=== PATIENT | female | born 1980 | race Caucasian/White ===

== ENCOUNTER → 2022-08-27 | Outpatient (CLI) | payer OTHER, SELFPAY ==
--- NOTE | 2022-08-27 12:56 | BI_ITS ---
MAMMOGRAPHY - BILATERAL SCREENING REASON FOR EXAM: Female, 42 years old. Routine annual screening examination. PERTINENT HISTORY: Non-contributory. TECHNIQUE: Digital bilateral breast adrian (3D mammographic acquisition) in the CC and MLO projections. 2-D mediolateral oblique (MLO) and craniocaudad (CC) views of both breasts were obtained. CAD: Full Field Digital Mammography with Computer Added Detection was performed. COMPARISON: None. FINDINGS: Breast Composition: The breasts are heterogeneously dense, which may obscure small masses. There is a 5.8 x 4.2 cm oval, slightly lobular, partially obscured mass in the right upper outer breast approximately 3 cm posterior to the nipple. Further assessment with ultrasound is recommended. No other significant abnormalities are identified. BI/SCRN MAMM (CAD)W/ADRIAN BILAT IMPRESSION: Further imaging evaluation recommended, as described above. (E) Recall Side: Right Breast ASSESSMENT CATEGORY: BIRADS Category 0: Incomplete. Need additional imaging evaluation. A letter regarding these results will be sent to the patient by the facility within 30 days. Approximately 10% of breast cancers are not detected by mammography. A normal mammogram should not delay biopsy of a clinically suspicious abnormality. Electronically Signed: Kenny Waldron DO at 11:15 EDT ,
--- NOTE | 2022-08-27 13:35 | US_ITS ---
INDICATION: MENORRHAGIA EXAMINATION: US Pelvis Non OB Complete With Transvaginal Imaging TECHNIQUE: Transabdominal and transvaginal pelvic ultrasound was performed. Grayscale and color flow Doppler evaluation of the adnexa. Spectral waveform analysis of ovaries was not performed. COMPARISON: None. FINDINGS: UTERUS: Retroverted uterus measures 10.2 x 6.5 x 7 cm. Heterogeneous ovoid low-attenuation mass within posterior uterine fundal myometrium compatible with fibroid, measuring 6.3 x 3.8 x 4.8 cm. The endometrial complex measures 15 mm in AP diameter and is normal echotexture with no discrete lesion. RIGHT OVARY: Right ovary measures 4 x 2.9 x 3.6 cm. Non-enlarged, normal echogenicity. Normal color Doppler flow with no concerning lesion. LEFT OVARY: Left ovary measures 5.8 x 2.9 x 3 cm. Non-enlarged, normal echogenicity. Normal color Doppler flow with no concerning lesion. FREE FLUID: No significant free fluid detected. US/Pelvic w/ Transvaginal IMPRESSION: Large posterior uterine fibroid measuring up to 6.3 cm diameter Electronically Signed: Carlos Connell MD at 6:39 EDT ,
== END | disposition home or self-care (01) ==
PROVIDERS: PCP Nurse Practitioner Family; Referring Provider Nurse Practitioner Women's Health; Visit Provider Nurse Practitioner Women's Health
DX: Z12.31 Encounter for screening mammogram for malignant neoplasm of breast (principal); N92.0 Excessive and frequent menstruation with regular cycle
CPT/HCPCS: 76830; 76856; 77063; 77067

== ENCOUNTER → 2022-08-31 | Outpatient (CLI) | payer OTHER, SELFPAY ==
--- NOTE | 2022-08-31 10:43 | US_ITS ---
EXAM: Diagnostic unilateral right breast ultrasound REASON FOR EXAM: Female, 42 years old. Follow-up for abnormal mammogram findings. PERTINENT HISTORY: Non-contributory. TECHNIQUE: Real-time nair scale and color sonographic images were obtained of the right upper outer breast was performed. COMPARISON: Screening mammogram from 08/27/2022. FINDINGS: Ultrasound findings: There is a 4.6 x 5.2 x 1.9 cm hypoechoic/mixed echogenicity mass at the 10:00 position approximately 6.0 cm posterior to the nipple and corresponding with the mammography findings. This demonstrates indistinct slightly lobular borders, slight internal vascularity, but does not demonstrate posterior enhancement or posterior shadowing.. US/Breast Limited Unilateral IMPRESSION: Indeterminate 4.6 x 5.2 x 1.9 cm mass in the right breast warrants further assessment with biopsy. ASSESSMENT CATEGORY: BIRADS Category 4: Suspicious - Biopsy Should Be Considered. A letter regarding these results will be sent to the patient by the facility within 30 days. Recommendation: Biopsy is recommended. Approximately 10% of breast cancers are not detected by mammography. A normal mammogram should not delay biopsy of a clinically suspicious abnormality. Electronically Signed: Kenny Waldron DO at 14:02 EDT ,
== END | disposition home or self-care (01) ==
LOC: OPUS 10:40
PROVIDERS: PCP Nurse Practitioner Family; Referring Provider Nurse Practitioner Women's Health; Visit Provider Nurse Practitioner Women's Health
DX: N63.11 Unspecified lump in the right breast, upper outer quadrant (principal)
CPT/HCPCS: 76642

== ENCOUNTER → 2022-09-05 | Outpatient (CLI) | payer OTHER, SELFPAY ==
--- NOTE | 2022-09-05 | BRBX_PTH ---
PATIENT: LILLIANA ARMENDARIZ LOC: [facility] U#:[id number] AGE/SX: 42/F ROOM: RE09/05/[address]: Dr. Delroy Dobson MD : 1980 BED: DIS: 09/05/2022 SPEC #: [id number] RECD: 09/06/22 08:58 STATUS: FRAN PASTRANA #: [id number] KIERSTEN: 09/05/22 00:[address]: Delroy Dobson DEPT: SURGICAL PATHOLOGY RECD BY: Leon Suárez ENTERED: 09/06/22 08:59 SP TYPE: BREAST BX OTHR DR: Ellie Arellano, TAMANNA Tissues: Right breast, NOS Procedures: Surgery Specimen Level IV HEADER OPERATION: Ultrasound-guided needle core biopsy right breast PRE-OP DIAGNOSIS: Abnormal mammogram TISSUE SUBMITTED: Right breast biopsy MICROSCOPIC DIAGNOSIS Right breast, ultrasound-guided core biopsy: Mild non-proliferative fibrocystic change. Focal intraductal hyperplasia without atypia. No evidence of malignancy. AM:eduardo 09/07/2022 MICROSCOPIC DESCRIPTION Slides are reviewed. GROSS DESCRIPTION Received in fixative is one container labeled with the patient's name and designated right breast. The specimen consists of multiple elongated fragments of genao-yellow fibroadipose tissue that in aggregate measure 2.0 x 0.5 x 0.1 cm. The entire specimen is submitted in one cassette. / SJ:eduardo 09/06/2022 TC:5 CPT: 11645
== END | disposition home or self-care (01) ==
LOC: LAB 16:08
PROVIDERS: PCP Nurse Practitioner Family; Referring Provider Surgery; Visit Provider Surgery
DX: R92.8 Other abnormal and inconclusive findings on diagnostic imaging of breast (principal)
CPT/HCPCS: 88305

== ENCOUNTER → 2022-10-31 | Outpatient (CLI) | payer OTHER, SELFPAY ==
--- NOTE | 2022-10-31 17:00 | EMB_PTH ---
PATIENT: LILLIANA ARMENDARIZ LOC: [facility] U#:[id number] AGE/SX: 42/F ROOM: RE10/31/[address]: Dr. Siobhan Quispe DO : 1980 BED: DIS: 10/31/2022 SPEC #: [id number] RECD: 10/31/22 17:52 STATUS: FRAN VICTORIANO #: [id number] KIERSTEN: 10/31/22 17:[address]: Siobhan Quispe DEPT: SURGICAL PATHOLOGY RECD BY: Joanne Quinteros ENTERED: 11/01/22 10:26 SP TYPE: ENDOM BX/C HUSEYIN DR: TAMANNA Carter Tissues: Endometrium, NOS Procedures: Surgery Specimen Level IV HEADER OPERATION: EMB PRE-OP DIAGNOSIS: Menorrhagia TISSUE SUBMITTED: Endometrial lining MICROSCOPIC DIAGNOSIS Endometrial biopsy: Proliferative endometrium. Fragments of benign endocervical mucosa. SJ: 11/02/2022 MICROSCOPIC DESCRIPTION Slides are reviewed. GROSS DESCRIPTION Received in formalin is one container labeled with the patient name and designated endometrial lining. The specimen consists of multiple fragments of hemorrhagic soft tissue measuring in aggregate 1.5 x 1.5 x .1 cm. The specimen is totally submitted in one cassettes. /EDUARDO:radha 11/01/22 TC:4 CPT: 54722
== END | disposition home or self-care (01) ==
PROVIDERS: PCP Nurse Practitioner Family; Visit Provider Obstetrics & Gynecology
DX: Z12.4 Encounter for screening for malignant neoplasm of cervix (principal); N92.0 Excessive and frequent menstruation with regular cycle
CPT/HCPCS: 87624; 88175; 88305; G0145

== ENCOUNTER 2023-01-22 09:01 | Day surgery (SDC) | payer OTHER, SELFPAY ==
--- NOTE | 2023-01-21 08:02 | EKG12_ITS ---
Test Reason : PREOP Blood Pressure : / mmHG Vent. Rate : 060 BPM Atrial Rate : 060 BPM P-R Int : 158 ms QRS Dur : 080 ms QT Int : 452 ms P-R-T Axes : 043 004 013 degrees QTc Int : 452 ms Normal sinus rhythm Normal ECG Confirmed by STEVAN HANSEN ([id number]), film editor TY FLOR ([id number]) on 01/21/2023 11:23:29 AM Referred By: Siobhan Quispe Confirmed By:STEVAN HANSEN
[2023-01-21 09:06] LABS: Hematocrit 38.2 % (37-47); Hemoglobin 11.7 g/dL (12.0-15.0); Mean Corp Hgb Conc 30.6 g/dL (32-36); Mean Corpuscular Hgb 27.4 pg (27.0-32.0); Mean Corpuscular Volume 89.5 fL (81-99); Mean Platelet Vol. 10.5 fl (6.2-12.0); Platelet Count 364 K/mm3 (150-450); RBC Distribution Width CV 13.4 % (11.6-14.6); RBC Distribution Width SD 44.4 fl (35.1-43.9); Red Blood Count 4.27 M/mm3 (4.2-5.4)
[2023-01-21 09:24] LABS: Magnesium 2.3 mg/dL (1.6-2.6)
[2023-01-21 09:24] LABS: ALB/GLOB Ratio 0.9 RATIO (0.9-2.4); AST(SGOT) 33 U/L (15-37); Alanine Aminotransfer ALT/SGPT 39 U/L (13-56); Albumin, Serum 3.2 g/dL (3.2-5.0); Alkaline Phosphatase 115 U/L (45-117); Anion Gap 5 (5-15); BUN 15 mg/dL (7-18); BUN/Creat Ratio 21.1 RATIO (10-20); Calcium,Total 8.7 mg/dL (8.5-10.1); Chloride 107 mmol/L (98-107); Creatinine, Serum 0.71 mg/dL (0.55-1.02); EST Glomerular Filtration Rate 96 mL/min (>60); Est Glom Filt Rate - Afr Amer 116 mL/min (>60); Globulin 3.7 g/dL (2.2-4.2); Glucose 99 mg/dL (74-106); Potassium 4.1 mmol/L (3.5-5.1); Protein, Total 6.9 g/dL (6.4-8.2); Sodium Level 140 mmol/L (136-145)
[2023-01-22] VITALS (15 sets, daily range): BP systolic 91–134; BP diastolic 54–80; PULSE 44–68; RESP 16–18; TEMP 36.2–36.8; O2SAT 92–99; BMI 55.7
[2023-01-22 09:50] LABS: Internal QC Validated? YES +Cl - CLEAR BKGD; Pregnancy, Urine Negative Negative
[2023-01-22] MEDS: Acetaminophen 500 MG Tablet 1000 MG PO (09:52)
[2023-01-22] MEDS: Lactated Ringers 1,000 ML 40 ML IV (09:53)
[2023-01-22] MEDS: Gabapentin 600 MG Tablet PO (09:53)
[2023-01-22] MEDS: Magnesium 1 GM over 15 mins IV (09:53)
--- NOTE | 2023-01-22 10:18 | HP.PCM_ITS ---
History and Physical Date of Admission: 01/22/23 Intake Vital Signs 11/27/2310:34 12/19/2310:37 01/08/2310:58 01/08/2311:00 Height 5 ft 9 in 5 ft 9 in 5 ft 9 in 5 ft 9 in Weight: 374 lb 6 oz BMI 55.3 BP 126/86 H Intake Visit Reasons: [facility] BS Computational Scientist Required: No Is patient in pain?: No Allergies No Known Allergies Allergy (Verified 01/08/23 10:58) Medications dextroamphetamine-amphetamine 10 mg tablet (Adderall) 10 mg PO DAILY 08/02/22 [History Confirmed 01/08/23] gabapentin 300 mg capsule 300 mg PO TID 08/02/22 [History Confirmed 01/08/23] hydroxyzine pamoate 50 mg capsule (Vistaril) 50 mg PO BID 08/02/22 [History Confirmed 01/08/23] omeprazole 10 mg capsule,delayed release 10 mg PO DAILY 09/05/22 [History Confirmed 01/08/23] Post menopausal: No Patient : No : No PFSH Surgical History History of adenoidectomy Hx of foot surgery Family History Mother DiabetesGrandmother Diabetes Social History adopted: No current occupational status: employed current occupation: [employer] sexually active: No Smoking Status: Former smoker alcohol intake: current substance use type: does not use seatbelt use: always [facility] BS Details: AUGUSTO ARMENDARIZ is a 42 year old who presents for pre-op exam. She has a history of extremely heavy menses and pelvic discomfort. pelvic ultrasound shows a 6 cm posterior fibroid. : UTERUS: Retroverted uterus measures 10.2 x 6.5 x 7 cm. Heterogeneous ovoid low-attenuation mass within posterior uterine fundal myometrium compatible with fibroid, measuring 6.3 x 3.8 x 4.8 cm. The endometrial complex measures 15 mm in AP diameter and is normal echotexture with no discrete lesion. RIGHT OVARY: Right ovary measures 4 x 2.9 x 3.6 cm. Non-enlarged, normal echogenicity. Normal color Doppler flow with no concerning lesion. LEFT OVARY: Left ovary measures 5.8 x 2.9 x 3 cm. Non-enlarged, normal echogenicity. Normal color Doppler flow with no concerning lesion. FREE FLUID: No significant free fluid detected. An EMB was performed in October and found to be normal. She would like to proceed with hysterectomy to aleviate pain from the fibroid putting pressure on her bladder. ROS Const ROS Unobtainable: All systems reviewed & are unremarkable except as noted in H Resp Resp: Reports system reviewed and no additional complaints, except as documented; Denies cough GI GI: Reports as per HPI Psych Psych: Reports system reviewed and no additional complaints, except as documented Exam Const General: cooperative, healthy appearing, comfortable and no acute distress Resp Effort & Inspection: normal respiratory effort Skin General: no rashes or lesions noted Psych Appearance: grossly normal Speech and Movement: speech and movement normal Coding Level of Care Code Off vis,est,level 4 Diagnoses Morbid obesity E66.01 Menorrhagia with regular cycle N92.0 Fibroid uterus D25.9 Assessment and Plan Assessment and Plan (1) Morbid obesity: Status: Acute (2) Menorrhagia with regular cycle: Status: Acute (3) Fibroid uterus: Status: Acute Plan: After discussing the patient's diagnosis and treatment plan options, patient wishes to proceed with surgical management. I have discussed with the patient the risks, benefits, and alternatives of the procedure which include but are not limited to risks of anesthesia, bleeding, infection, possible damage to bowel, bladder, or surrounding vasculature which could lead to additional surgery to evaluate any complications. Patient agrees to procedure and wishes to proceed. ACOG/uptodate references given for additional information regarding procedure. plan is for total robotic hysterectomy, bilateral salpingectomy, and cystoscopy.
[2023-01-22 10:35] LABS: Bedside Glucose 97 mg/dL (74-106)
[2023-01-22] MEDS: Cefazolin 3 GM in 0.9% Normal Saline (100mL Bag) 100 ML IV (10:35)
--- NOTE | 2023-01-22 11:10 | HYST_PTH ---
PATIENT: LILLIANA ARMENDARIZ LOC: [facility] – [place] U#:[id number] AGE/SX: 42/F ROOM: RE01/22/[address]: Dr. Siobhan Quispe DO : 1980 BED: DIS: 01/22/2023 SPEC #: [id number] RECD: 01/22/23 13:50 STATUS: FRAN VICTORIANO #: [id number] KIERSTEN: 01/22/23 11:[address]: Siobhan Quispe DEPT: SURGICAL PATHOLOGY RECD BY: Joanne Quinteros ENTERED: 01/22/23 14:24 SP TYPE: HYSTERECT OTHR DR: Ellie Arellano, TAMANNA Tissues: Uterus, NOS Procedures: Surgery Specimen Level V HEADER OPERATION: ERAS, lap robotic hysterectomy, bilateral salpingectomy PRE-OP DIAGNOSIS: Morbid obesity, menorrhagia, fibroid uterus TISSUE SUBMITTED: Uterus, cervix, bilateral fallopian tubes MICROSCOPIC DIAGNOSIS Uterus, hysterectomy: Cervix - Nabothian cysts, squamous metaplasia and mild chronic inflammation. Endometrium - proliferative endometrium. Myometrium - leiomyomas. Right fallopian tube - benign paratubal cyst. Left fallopian tube - serous cystadenoma. AM:eduardo 01/23/2023 MICROSCOPIC DESCRIPTION Slides are reviewed. GROSS DESCRIPTION Received in fixative is one container labeled with the patient's name and designated uterus. The specimen consists of a previously opened uterus with attached cervix and attached right and left fallopian tubes. The uterus with cervix measures 11.0 x 9.5 x 9.0 cm and weighs 254 gm. The endocervical canal measures 3.0 cm in length and is grossly unremarkable. The triangular endometrial cavity measures 4.0 x 3.5 cm. The velvety, light genao endometrium measures up to 0.2 cm in thickness. The myometrium measures 2.2 cm in average thickness and is distorted by multiple spherical rubbery nodules consistent with leiomyomas ranging in size from 1.0 to 5.5 cm. The right fallopian tube measures 9.0 cm in length and 0.8 cm in average diameter. The fimbrial end contains a smooth, glistening cyst containing clear fluid. The left fallopian tube is similar in appearance and measures 7.0 cm in length and 0.8 cm in average diameter. The fimbrial end contains a smooth, glistening cyst measuring 2.2 cm and containing clear fluid. Sales Representative Livestock sections are submitted in 12 cassettes as follows: 1 - anterior cervix, 2??posterior cervix, 3 & 4 - anterior uterine wall, 5 & 6 - posterior uterine wall, 7 - largest myometrial mass, 8 - second largest myometrial mass, 9 - third largest myometrial mass, 10 - right fallopian tube and paratubal cyst, 11 - left fallopian tube, 12 - left paratubal cyst. / AM:eduardo 01/22/2023 TC:1 CPT: 36337
--- NOTE | 2023-01-22 13:09 | PCM.OPRPT ---
Problems Associated Problem List Diagnoses (1) Fibroid uterus: (2) Morbid obesity: (3) Menorrhagia with regular cycle: (4) Chronic anemia: Report of Operation Surgeon: Siobhan Quispe business partner: Poli Motley Type of Anesthesia: General Anesthesiologist: Moses Peter Special Medications: methylene blue Specimen's removed: uterus, cervix, fallopian tube Drains: none Estimated Blood Loss (mL): 100cc Fluids Replaced: 2000cc Description of Procedure: Preoperative diagnosis:[ ] Postoperative diagnosis: [ ] Procedure: Total robotic hysterectomy [bilateral salpingooophorectomy] and cystoscopy Procedure: The patient was placed in the dorsal low lithotomy position and prepped and draped in the normal sterile fashion both abdominally and in the perineum. Her legs were placed in stirrups a Cowart catheter was inserted into the urethra without difficulty. A weighted speculum was placed in the vagina and a single-tooth tenaculum was used to grasp the anterior lip of the cervix. An [employer]ers On Call uterine manipulator was inserted through the cervix without complication. It was then tied into place at the 2 and 10:00 locations on the cervix. Gloves were changed and attention was turned towards the abdomen. Approximately 23 cm above the pubic symphysis in the midline, and after Marcaine injection, a 8 mm incision was made. An 8 mm trocar was inserted through the laparoscope, then inserted into the abdomen under direct visualization using the laparoscope. Good abdominal placement was noted and no complications were appreciated. An air seal device was utilized to create pneumoperitoneum. At 12 cm lateral to the midline on the left and right sides 8 mm accessory ports were placed. Next a left upper quadrant 8 mm administrative assistant port site was placed. The patient was placed in steep Trendelenburg position. The robot was docked. The hysterectomy was initiated first by taking down the round ligament on each side using the vessel sealer device. The fallopian tubes were grasped and the underlying mesosalpinx was cauterized and cut to the level of the uterus. The left fallopian tube was found to have a 2 cm cyst at the fimbriated end. The broad ligament was then and taken down using the vessel sealer device. Next the bladder flap was taken down without complication. This was done using monopolar cautery to the level of the cervical vaginal junction. After the bladder flap was created, uterine vessels were then isolated and cauterized using the vessel sealer device and EndoShears. At this point the uterine vessels were taken down further starting from the ascending branch, dissecting along the edges of the cervix to the level of the cervical vaginal junction with hemostasis appreciated. The cervical vaginal junction was then using monopolar cautery in a circumferential pattern across the superior aspect of the cervix. The specimen was delivered through the vagina and sent to pathology. The remaining vaginal cuff was then closed using a V lock suture. This was performed in a running technique. Excellent hemostasis was obtained and good closure was noted. Irrigation was then performed. All operative sites were noted to be hemostatic. A cystoscopy was performed with a 70 degree cystoscope through the urethra into the bladder without complication. The bladder was instilled with approximately 250 cc of normal saline. Intraoperative images were made. Ureteral orifices were noted but jet flow was difficult to see. Whistle tip catheter was passed through the ureters to 20cm confirming patency. No suture material was appreciated in the bladder. The bladder was then drained and cystoscope was removed. The abdominal cavity was again examined using the laparoscope after the robot was undocked. All operative sites were noted to be hemostatic. The trochars were removed under direct visualization without complication and pneumoperitoneum was reduced. At this point the skin was then closed using 4-0 Monocryl subcuticular stitch and sealed with surgical glue. The patient tolerated the procedure well sponge lap and needle counts were correct x2 the patient was taken to the recovery room in stable condition. Complications none Admit VTE Documentation VTE Present on Admission: Yes VTE Mechan Device Prophylaxis: SCD's VTE Pharm Prophylaxis ordered?: No Multi Select Codes Urinary/Genital Urinary/Genital CPT Codes: 70879 Cystoscopy [place] 08147 TLH+BS/O >250gr uterus
[2023-01-22] MEDS: Bupivacaine 0.25% 30 ML Vial (13:18)
[2023-01-22] MEDS: Lactated Ringers @ 70 MLS/HR 70 ML IV (13:45)
--- NOTE | 2023-01-22 14:47 | SUR.PHASEI ---
pt currently on bedside commode for urge of urination.
--- NOTE | 2023-01-22 16:46 | DCINST_ITS ---
Discharge Instructions Diet Discharge Diet: No restrictions Activity May resume sexual activity in: 6 weeks Weight Bearing Status: Full weight bearing Dressing / Incision Call your doctor if your incision/area has: Continuous Slow Oozing, Sudden Increased Bleeding, Increased Pain/ Swelling, Increased Redness and Foul Smelling Discharge Call your doctor if you observe: Fever of 101 or Higher, Using more than 1 pad per hour, Shortness of breath, Chest pain and Uncontrolled pain Suture Line Care: Avoid Pulling/Pushing and Avoid Pinching/Bending Remove Dressing in: 1 week (if present) Cleanse incision/area with: Soap & Water and Keep Dressing Clean & Dry Follow Up Care Please Follow Up With: Siobhan Quispe DO When: Call to make an appointment with your doctor for a postop visit in 2 and 6 weeks Test Results: Test results from this visit will be discussed in further detail at your follow- up appointment, if applicable. Discharge Plan Admission Primary Reason for Your Visit: hysterectomy Attending Provider: Siobhan Quispe Primary Care Provider: Ellie Arellano Discharge Orders/Prescriptions Prescriptions: New ibuprofen 800 mg tablet 800 mg PO Q8H PRN (Reason: pain) Qty: 30 0RF oxycodone-acetaminophen [Percocet] 5-325 mg tablet 1 tab PO Q4H PRN (Reason: pain) 7 Days Qty: 30 0RF Rx Instructions: 1-2 tabs q 4 hrs as needed for pain Continued dextroamphetamine-amphetamine [Adderall] 10 mg tablet 10 mg PO DAILY gabapentin 300 mg capsule 800 mg PO TID omeprazole 10 mg capsule,delayed release(DR/EC) 10 mg PO DAILY hydroxyzine HCl 10 mg tablet 10 mg PO PRN Patient Comments: take 2 tablets every 8 hours if needed for anxiety propranolol 20 mg tablet 20 mg PO BID Patient Comments: take 1 tablet by mouth twice a day ergocalciferol (vitamin D2) 1,250 mcg (50,000 unit) capsule 1,250 mcg PO .Q WEEK Patient Comments: take 1 capsule by mouth every week Referrals / Follow Up: Ellie Arellano, CASIE-C [Primary Care Provider] - Disposition Disposition (needs filled in before D/C Order can be placed): Home, Self Care
[2023-01-22] MEDS: Oxycodone/Apap 5/325 Tablet PO (16:59)
== END 2023-01-22 18:06 | disposition home or self-care (01) ==
LOC: SDC 09:01 → AC 09:02
PROVIDERS: Anesthesiology; PCP Nurse Practitioner Family; Referring Provider Obstetrics & Gynecology; Visit Provider Obstetrics & Gynecology
PROC: 0UT90ZZ Resection of Uterus, Open Approach (ICD-10-PCS; CPT 58573; principal; 2023-01-22 10:50)
DX: N88.8 Other specified noninflammatory disorders of cervix uteri (principal); E66.01 Morbid (severe) obesity due to excess calories; Z68.43 Body mass index [BMI] 50.0-59.9, adult; D25.9 Leiomyoma of uterus, unspecified; N83.8 Other noninflammatory disorders of ovary, fallopian tube and broad ligament; D28.2 Benign neoplasm of uterine tubes and ligaments; D64.9 Anemia, unspecified; N92.0 Excessive and frequent menstruation with regular cycle; F32.A Depression, unspecified; F41.9 Anxiety disorder, unspecified; G47.30 Sleep apnea, unspecified; G89.29 Other chronic pain; Z79.899 Other long term (current) drug therapy; Z87.891 Personal history of nicotine dependence
CPT/HCPCS: 58573; S2900; 00840; 36415; 80053; 81025; 82962; 83735; 85027; 86850; 86900; 86901; 88307; 93005; J7120; J2405; J3475; Q9968

== ENCOUNTER → 2023-04-26 | Outpatient (CLI) | payer OTHER, SELFPAY ==
--- NOTE | 2023-04-26 11:00 | US_ITS ---
STUDY: ULTRASOUND BREAST - RIGHT REASON FOR EXAM: Female, 43 years old. History of right breast mass. Prior biopsy. TECHNIQUE: Axial and longitudinal images of the RIGHT breast were performed with a high resolution ultrasound transducer. # OF IMAGES: 42 COMPARISON: Comparison is made with prior ultrasound of the right breast dated August 31, 2022. FINDINGS: RIGHT Breast: Once again, there is an irregular hypoechoic solid mass at the 10:00 position of the breast at 1 cm from the nipple. This measures 4.7 cm x 5.8 cm x 1 cm. Biopsy of this lesion was performed in the past. US/Breast Limited Unilateral IMPRESSION: Stable 4.7 cm x 5.8 x 1 cm irregular hypoechoic solid mass at the 10:00 position of the breast at 1 cm from the nipple. ASSESSMENT CATEGORY: BIRADS Category 2: Benign. A letter regarding these results will be sent to the patient by the facility within 30 days. Electronically Signed: Constantine Wolfe MD at 12:17 EST ,
== END | disposition home or self-care (01) ==
PROVIDERS: PCP Nurse Practitioner Family; Referring Provider Surgery; Visit Provider Surgery
DX: N63.10 Unspecified lump in the right breast, unspecified quadrant (principal)
CPT/HCPCS: 76642

== ENCOUNTER → 2023-05-24 | Outpatient (CLI) | payer OTHER, SELFPAY ==
--- NOTE | 2023-05-24 10:20 | RAD_ITS ---
EXAM: XR PELVIS, 1 OR 2 VIEWS CLINICAL INDICATION: INFLAMMATORY POLYARTHROPATHY TECHNIQUE: Frontal view of the pelvis. COMPARISON: No relevant prior studies available. FINDINGS: BONES/JOINTS: No acute abnormality. No evidence of sacroiliitis. SOFT TISSUES: Normal. No soft tissue swelling or gas. RAD/Pelvis 1 or 2 Views IMPRESSION: Normal AP pelvis. Electronically Signed: Nic Almeida MD at 16:37 EDT ,
[2023-05-24 11:11] LABS: EXAGEN MAILED SPECIMEN
[2023-05-24 12:50] LABS: Absolute Lymphocyte Count 2.25 X10^3/uL (0.83-4.51); Absolute Neutrophil Count 4.9 X10^3/uL (2.0-7.7); Basophil# 0.08 X10^3/uL; Eosinophil# 0.43 X10^3/uL; Eosinophils% 5.2 % (0-5); Hematocrit 41.1 % (37-47); Hemoglobin 12.9 g/dL (12.0-15.0); Lymphocyte # 2.25 X10^3/ul (0.83-4.51); Lymphocyte % 27.3 % (19-41); Mean Corp Hgb Conc 31.4 g/dL (32-36); Mean Corpuscular Hgb 26.5 pg (27.0-32.0); Mean Corpuscular Volume 84.4 fL (81-99); Mean Platelet Vol. 10.8 fl (6.2-12.0); Monocyte# 0.54 X10^3/uL; Monocyte% 6.6 % (0-10); NRBC Flagged by Analyzer 0 % (0-5); Neutrophil # 4.91 X10^3/uL (2.7-7.7); Neutrophil % 59.7 % (47-70); Platelet Count 340 K/mm3 (150-450); RBC Distribution Width CV 14.6 % (11.6-14.6); RBC Distribution Width SD 45.1 fl (35.1-43.9); Red Blood Count 4.87 M/mm3 (4.2-5.4); White Blood Count 8.2 K/mm3 (4.4-11.0)
[2023-05-24 12:52] LABS: Protein:Creat Ratio 100 mg/g CRE (0-200)
[2023-05-24 12:57] LABS: AST(SGOT) 15 U/L (15-37); Alanine Aminotransfer ALT/SGPT 18 U/L (13-56); Albumin, Serum 3.5 g/dL (3.2-5.0); Alkaline Phosphatase 84 U/L (45-117); Anion Gap 4 (5-15); BUN 16 mg/dL (7-18); Chloride 108 mmol/L (98-107); Creatinine, Serum 0.73 mg/dL (0.55-1.02); EST Glomerular Filtration Rate 93 mL/min (>60); Est Glom Filt Rate - Afr Amer 113 mL/min (>60); Globulin 3.4 g/dL (2.2-4.2); Glucose 98 mg/dL (74-106); Potassium 4.1 mmol/L (3.5-5.1); Protein, Total 6.9 g/dL (6.4-8.2); Sodium Level 139 mmol/L (136-145)
[2023-05-24 12:59] LABS: Color, Urine Yellow (Yellow); Glucose, Dipstick Normal (Normal); Ketone-Dipstick 5 mg/dl (Negative); Leukocyte Esterase-Dipstick 25 /ul (Negative); Nitrite-Dipstick Negative (Negative); Occult Blood-Urine Negative /ul (Negative); Protein-Dipstick 15 mg/dl (Negative); Urine Bilirubin Dipstick Negative (Negative); Urine Clarity Clear (Clear); Urine Urobilinogen Normal (Normal); Urine pH 6.5 (5.0 - 8.0)
[2023-05-24 15:56] LABS: Hepatitis B Surface Antibody Reactive; Hepatitis B Surface Antigen Non-Reactive (Nonreactive); Hepatitis C Antibody Non-Reactive (Nonreactive)
== END | disposition home or self-care (01) ==
LOC: MTLAB 10:07
PROVIDERS: PCP Nurse Practitioner Family; Referring Provider Internal Medicine Rheumatology; Visit Provider Internal Medicine Rheumatology
DX: M06.4 Inflammatory polyarthropathy (principal); R76.8 Other specified abnormal immunological findings in serum
CPT/HCPCS: 36415; 72170; 80053; 81002; 82570; 84156; 85025; 86706; 86803; 87340